=== PATIENT | female | born 1935 | race Caucasian/White ===

== ENCOUNTER 2017-08-11 19:10 | Inpatient (IN) | payer MEDICARE, MEDICAID ==
[2017-08-11] MEDS ORDERED: Pantoprazole 40 MG VIAL ONE (20:06)
[2017-08-11] MEDS ORDERED: Pantoprazole 80 MG, Admixture Fee 1 EACH in Sodium Chloride 0.9% 100 ML IVPB ONE (20:15)
[2017-08-11] MEDS ORDERED: Ondansetron HCl/PF 4 MG/2 ML Vial IVP PRN (20:41)
[2017-08-11] MEDS ORDERED: Acetaminophen 325 MG TAB PO PRN (20:41)
[2017-08-11] MEDS ORDERED: Guaifenesin DM 100-10/5 ML UDCUP PO PRN (20:41)
[2017-08-11] MEDS ORDERED: IDARUCIZUMAB 2.5 GM/50 ML VIAL IV SCH (21:00)
[2017-08-11 21:15] LABS: #Basophils 0.1 thou/uL (0.0-0.2); #Eosinphils 0.1 thou/uL (0.0-0.7); #Lymphocytes 0.9 thou/uL (1.20-3.40); #Monocytes 0.5 thou/uL (0.11-0.59); #Neutrophils 7.2 thou/uL (1.40-6.50); %Basophils 0.8 % (0.0-1.0); %Eosinophils 0.6 % (0.0-10.0); %Lymphocytes 10.5 % (21.0-51.0); %Monocytes 5.9 % (0.0-10.0); %Neutrophils 82.2 % (42.0-75.0); Hemoglobin 6.6 g/dL (12.0-16.0); Mean Corpuscular HGB CONC 31.8 g/dL (32.0-36.0); Mean Corpuscular Hemoglobin 24.4 pg (27.0-31.0); Mean Corpuscular Volume 76.7 fl (81.0-99.0); Mean Platelet Volume 10.7 fL (7.4-10.4); Platelet Count 240 thou/uL (130-400); RBC Distribution Width 22.6 % (11.5-14.5); White Blood Cell (WBC) Count 8.8 thou/uL (4.8-10.8)
--- NOTE | 2017-08-11 22:00 | HP ---
REASON FOR ADMISSION: Severe anemia, GI bleed. HISTORY OF PRESENTING ILLNESS: The patient was sent from [facility] to [facility] for possible workup of stroke as she was not moving her left side. During the workup, the patien t was found to have had hemoglobin of 3.5 g. A stool rectal was done, which showed melena and was po sitive. She was given 2 units of packed cell transfusion and a CT of the brain was done, which showe d possible thalamic lacunar infarct on the right. She has been transferred here for higher level of care. Her current hemoglobin is pending. The patient is lethargic and barely answers 1 or 2 questio ns. Her daughter, Ms. Rosi White is here who is helping me with the history part. The patient is on Pradaxa for chronic atrial fibrillation and follows up with Dr. Anguiano. She has had prior history of heavy bleeding and has had colonoscopy done in last January at [facility]. Dr. Chrissy hays did the colonoscopy and the reason for her GI bleed was due to rectal fissures and hemorrhoids t rose mary. After a washout, she was restarted on Pradaxa. This has been held from yesterday, now for [employer] work on the . She has some right side dental carries/pain. The patient says she has not passe d any bowel movement today. Again, her history is not very accurate at present. The family also men tions that she has not been eating or drinking from Friday as she has been feeling weak from then on. PAST MEDICAL AND SURGICAL HISTORY: History of chronic atrial fibrillation, hypertension, obstructive sleep apnea, history of melanoma, appendectomy, cholecystectomy, bilateral breast implants, history of CHF, COPD, peripheral vascular disease, GERD, and hypothyroidism. CURRENT MEDICATIONS: The patient is on Abilify 5 mg p.o. at bedtime for depression, Norvasc 10 mg p. o. daily, aspirin 81 mg p.o. daily, Cardizem hydrochloride solutions to be applied 1 g 3 times daily p.r.n. for rectal area for hemorrhoids, losartan 100 mg p.o. daily, melatonin 3 mg p.o. at bedtime, m etoprolol 25 mg p.o. daily, MiraLax 17 g daily, thyroid 32.5 mg daily, Pradaxa 150 mg twice daily, Ul tram p.r.n. for pain, Zoloft 150 mg p.o. daily, zolpidem 5 mg p.o. at bedtime. ALLERGIES: CODEINE. PERSONAL HISTORY: Does not abuse alcohol or drugs. No history of smoking. The patient lives at [facility]. FAMILY HISTORY: Significant for heart disease. REVIEW OF SYSTEMS: Cannot be obtained as patient is very lethargic. PHYSICAL EXAMINATION: GENERAL: The patient is an 82-year-old female who is currently very lethargic. VITAL SIGNS: 110/54, pulse 76 per minute, respiratory rate 16 per minute, temperature 97.6 degrees F ahrenheit, saturating 94% on room air. Earlier, her blood pressure was 76/40 at [facility] nd 6:02 p.m. NECK: Supple, no elevated JVD. HEENT: Eyes, there is severe pallor. Extraocular muscles intact. Pupils reacting to light. Oral c avity, mucous membranes are dry. No exudates or congestion. CARDIOVASCULAR SYSTEM: S1, S2 heard. Regular rhythm. RESPIRATORY SYSTEM: Air entry 1+ bilateral. No rales or rhonchi. ABDOMEN: Soft, bowel sounds heard. No tenderness, rigidity or guarding. EXTREMITIES: There is 2+ peripheral edema. Left lower extremity edema is far worse than right. No ulcerations or gangrene. Peripheral pulses are 1+ bilateral. CENTRAL NERVOUS SYSTEM: The patient is severely deconditioned and she has not seen moving her left u pper extremity. She moves her right upper extremity pretty good when compared to all 4. Right lower extremity, she moves better than left. She barely moves with gravity and does not lift her legs or bend her knees. Gait was not tested. PSYCHIATRIC SYSTEM: Cannot be assessed due to patient's extreme lethargy at present. LABORATORY AND X-RAY FINDINGS: White count of 14, H and H 3 and 12, platelet count 320 with 79% neut rophils, MCV is 65. PT/INR 22 and 2.0, PTT 43. Sodium 135, serum bicarbonate is 19, BUN 43, creatin ine 0.6, glucose 118, lactic acid 3.0. Troponin I 0.10, CK-MB 2.0. BNP 650. Albumin is 2.7. CT br ain done shows questionable lacunar infarct in right thalamus, which appears to be age indeterminate. There is diffuse chronic ischemic changes seen. EKG done shows atrial fibrillation at 82 beats per minute. There is nonspecific ST-T wave changes. CLINICAL IMPRESSION AND PLAN: The patient will be admitted to [facility] for severe anemia with gastrointe stinal bleed. The patient is on Pradaxa and this is second episode this year with severe bleeding. Praxbind is available in the pharmacy and will give her 5 mg IV 1 dose. The patient has received 2 u nits of packed cell at [facility] and will be given 2 more units along with 2 units of FFP as well. This is in view of her critical condition with hemoglobin of 3 g and the patient not being a juanita te for surgery or any procedures due to poor physical condition with likely acute infarct with left h emiparesis, which needs further workup when her H and H gets stable. She will be on Protonix drip 8 mg an hour. I have discussed her findings with Dr. Kris Jsoue, who will be consulted for GI. The patient's code status is DNR. I have discussed this with Ms. Rosi White, who is the daughter and pow er of securities attorney for the patient. The number to reach her is [phone]. The patient's overall cond ition is critical. The family clearly is aware of it. We will closely monitor her in [facility].
[2017-08-11 23:02] VITALS: BMI 29.3
[2017-08-12] MEDS: Pantoprazole 80 MG in Sodium Chloride 0.9% 100 ML IVP SCH ×2 (05:50→17:01)
[2017-08-12 06:05] LABS: Hemoglobin 8.6 g/dL (12.0-16.0)
[2017-08-12 06:32] LABS: ALT (SGPT) 18 U/L (8-55); AST (SGOT) 36 U/L (5-34); Albumin 2.8 g/dL (3.4-4.8); Alkaline Phosphatase 104 U/L (40-150); Anion Gap 11 mmol/L (10-20); BUN (Urea Nitrogen) 37 mg/dL (9.8-20.1); Bilirubin, Total 0.5 mg/dL (0.2-1.2); Calc. Creatinine Clearance 70 mL/min (70-130); Calcium 8.2 mg/dL (7.8-10.44); Carbon Dioxide 22 mmol/L (23-31); Chloride 106 mmol/L (98-107); Estimated GFR-MDRD 88; Globulin 2.7 g/dL (2.4-3.5); Glucose 103 mg/dL (83-110); Potassium 3.6 mmol/L (3.5-5.1); Protein, Total 5.5 g/dL (6.0-8.3); Sodium 135 mmol/L (136-145)
[2017-08-12] MEDS ORDERED: FLU VACC TS2017-18 (>65YR) 0.5 ML SYRINGE IM ONE (09:00)
[2017-08-12 09:50] LABS: Hemoglobin 8.9 g/dL (12.0-16.0)
[2017-08-12] MEDS ORDERED: Metoprolol Tartrate 25 MG TAB PO SCH (11:30)
[2017-08-12] MEDS ORDERED: Amlodipine 10 MG TAB PO SCH (11:30)
--- NOTE | 2017-08-12 12:36 | PDOC.PN ---
- Subjective Encounter Start Date: 08/12/17 Encounter Start Time: 11:10 Subjective: awake, no sob -: is wanting to eat - Objective Resuscitation Status: Resuscitation Status DNR:Do Not Resuscitate MAR Reviewed: Yes Vital Signs & Weight: Vital Signs (12 hours) Temp Pulse Pulse Resp BP Pulse Ox 08/12/17 08:00 98.0 F 82 17 94 L 08/12/17 07:00 97.8 F 08/12/17 04:53 97.6 F 80 20 96/50 L 98 08/12/17 04:00 98 F 08/12/17 02:27 97.5 F L 76 20 156/75 H 94 L 08/12/17 02:15 97.6 F 75 18 123/65 97 08/12/17 02:00 97.5 F L 08/12/17 01:57 97.6 F 75 18 130/69 Weight Weight 150 lb 2.157 oz Most Recent Monitor Data Heart Rate from ECG 86 NIBP 149/107 NIBP BP-Mean 142 Respiration from ECG 18 SpO2 95 I&O: 08/11/17 08/12/17 08/13/17 06:59 06:59 06:59 Intake Total 1669 Output Total 2 1 Balance 1667 -1 Result Diagrams: 08/12/17 09:27 08/12/17 05:45 Phys Exam - Physical Examination HEENT: PERRLA, moist MMs Neck: no JVD, supple Respiratory: no wheezing, no rales Cardiovascular: RRR, no significant murmur Gastrointestinal: soft, non-tender, positive bowel sounds Musculoskeletal: pulses present, edema present Neurological: non-focal, moves all 4 limbs Dx/Plan (1) Acute blood loss anemia Code(s): D62 - ACUTE POSTHEMORRHAGIC ANEMIA Status: Acute (2) GI bleed Code(s): K92.2 - GASTROINTESTINAL HEMORRHAGE, UNSPECIFIED Status: Acute Qualifiers: GI bleed type/associated pathology: unspecified gastrointestinal hemorrhage type Qualified Code(s): K92.2 - Gastrointestinal hemorrhage, unspecified (3) Severe muscle deconditioning Code(s): R29.898 - OTH SYMPTOMS AND SIGNS INVOLVING THE MUSCULOSKELETAL SYSTEM Status: Chronic (4) Afib Code(s): I48.91 - UNSPECIFIED ATRIAL FIBRILLATION Status: Chronic Qualifiers: Atrial fibrillation type: chronic Qualified Code(s): I48.2 - Chronic atrial fibrillation (5) Dementia Code(s): F03.90 - UNSPECIFIED DEMENTIA WITHOUT BEHAVIORAL DISTURBANCE Status: Chronic Qualifiers: Dementia type: unspecified type - Plan Hb around 8g and stable -: received praxbind, 2 u prbc and ffp yesterday -: will check inr in am -: is moving her left UE well this am -: d/w daughter at bedside, tx to med floor * . Review of Systems - Medications/Allergies Allergies/Adverse Reactions: Allergies Allergy/AdvReac Type Severity Reaction Status Date / Time codeine Allergy Unverified 08/11/17 20:06 Medications: Current Medications Acetaminophen (Tylenol) 650 mg PO Q4H PRN PRN Reason: Headache/Fever or Pain Amlodipine Besylate (Norvasc) 10 mg PO DAILY [facility] Aripiprazole (Abilify) 5 mg PO HS [facility] Guaifenesin/Dextromethorphan (Robitussin Dm) 15 ml PO Q4H PRN PRN Reason: Cough Pantoprazole Sodium 80 mg/ (Sodium Chloride) 100 mls @ 10 mls/hr IVP INF [facility] Last Admin: 08/12/17 05:50 Dose: 100 mls Metoprolol Tartrate (Lopressor) 25 mg PO BID [facility] Ondansetron HCl (Zofran) 4 mg IVP Q6H PRN PRN Reason: Nausea/Vomiting Sertraline HCl (Zoloft) 100 mg PO BID [facility] Sodium Chloride (Flush - Normal Saline) 10 ml IVF PRN PRN PRN Reason: Saline Flush
[2017-08-12] MEDS ORDERED: GoLYTELY 4,000 ml Bottle PO SCH (15:15)
[2017-08-12 16:30] LABS: INR-International Normal Ratio 1.2; PTT 24.1 SEC (22.9-36.1); Prothrombin Time 15.3 SEC (12.0-14.7)
--- NOTE | 2017-08-12 19:45 | CON ---
DATE OF CONSULTATION: 08/12/2017 REASON FOR CONSULTATION: GI bleed. CONSULTING PHYSICIAN: Dr. Allie Castro. HISTORY OF PRESENT ILLNESS: The patient is an 82-year-old female with a history of atrial fibrillati on on Pradaxa, MICHELLE, melanoma, CHF, COPD, peripheral vascular disease, and GERD, presenting with compl aints of GI bleeding. She is currently a resident of [facility] when she was noted that she was not moving her left side as effectively as previous with concern for a cerebrovascular accident. She was subsequently transferred to [facility] for further evaluation. Upon entr y into the facility with routine labs, she was noted to have a hemoglobin of 3.5 with a stool, rectal exam showing melena. She was subsequently given 2 units of PRBCs with a CT head done not showing an y hemorrhagic involvement. Currently, she is confused and unable to contribute a significant amount of information to further history with family unavailable for interview as well. The remainder of he r information was obtained through chart review. Apparently the patient had had a prior episode of G I bleeding in 01/2017 where she was evaluated by a GI physician at [facility] with colono scopy. During the colonoscopy, the GI bleed was relegated to rectal fissures and hemorrhoids. She w as restarted on Pradaxa shortly after the procedures and had not had any further episodes of GI bleed ing until now. PAST MEDICAL HISTORY: Chronic atrial fibrillation on anticoagulation, hypertension, obstructive slee p apnea, melanoma, CHF, COPD, peripheral vascular disease, GERD, and hypothyroidism. PAST SURGICAL HISTORY: Appendectomy, cholecystectomy, bilateral breast implants. SOCIAL HISTORY: Denies any tobacco, alcohol or illicit drug use. ALLERGIES: CODEINE. FAMILY HISTORY: No stated history of GI malignancy in the chart. REVIEW OF SYSTEMS: A 12-category review of systems could not be obtained from the patient due to inc reased confusion and lethargy on the part of the patient. PHYSICAL EXAMINATION: VITAL SIGNS: Heart rate 86, blood pressure 149/107, temperature 98 degrees, respiratory rate 18, sat ting 95% on room air. GENERAL: The patient is in no acute distress, alert and oriented x1. Mild confusion concerning her current situation. HEENT: Pupils are equal and round, reactive to light. Extraocular movements are intact. NECK: Supple. No JVD noted. CARDIOVASCULAR: Irregularly irregular heart rate with no discernible murmurs or gallops. A high pit ched systolic murmur was heard at the left upper sternal border. RESPIRATORY: Clear to auscultation bilaterally with no discernible wheezes or rales. ABDOMEN: Normoactive bowel sounds, soft, nontender, nondistended. EXTREMITIES: No cyanosis, clubbing or edema. LABORATORY STUDIES: CBC with a white blood cell count of 8.8, hemoglobin 8.6, hematocrit 26.3, plate lets 240. Chemistry with a sodium of 135, potassium 3.6, chloride 106, carbon dioxide 22, BUN 37, cr eatinine 0.64, glucose 103, AST 36, ALT 18, alkaline phosphatase 104, total bilirubin 0.5, MCV 76, RD W 22.6. IMAGING STUDIES: No current GI imaging studies are available for review. ASSESSMENT AND PLAN: The patient is an 82-year-old female with a history of atrial fibrillation on c hronic anticoagulation, obstructive sleep apnea, melanoma, congestive heart failure, chronic obstruct samuel pulmonary disease, peripheral vascular disease, and gastroesophageal reflux disease, presenting w ith complaints of GI bleeding. GI bleeding: The patient presenting with a questionable duration of darker colored stools along with a significantly decreased H&H as noted on routine labs upon admission. She has responded well to ap proximately 4 units of PRBCs with H&H currently stable at this time; however, rectal exam while in th e ED and was noted to have melenic type stools. Nursing evaluation while the patient has been in the ICU, has noted maroon type stools concerning for either an upper or lower gastrointestinal bleed. G iven the elevated BUN to creatinine ratio, an upper gastrointestinal bleed cannot be ruled out at thi s time, so therefore endoscopic evaluation of both the upper and lower GI tracts is indicated. RECOMMENDATIONS: 1. Continue to trend H&H and transfuse as necessary to maintain an H&H of 7/. 2. We would continue PPI drip until after endoscopic procedures. 3. We will proceed with both EGD and colonoscopy on 08/13/2017. Please make the patient n.p.o. at m idnight with colonoscopy prep 2 liters tonight and 2 liters in the morning of the procedure. 4. If patient cannot tolerate oral intake of the colonoscopy prep, we would consider NG tube placeme nt and administration via that route.
[2017-08-12] MEDS: Aripiprazole 10 MG TAB PO SCH (21:12)
[2017-08-12] MEDS: Metoprolol Tartrate 25 MG TAB PO SCH (21:13)
--- NOTE | 2017-08-12 21:42 | CON ---
HISTORY OF PRESENT ILLNESS: History is obtained from the patient, from the medical records that are available on the computer from reviewing patient's care with the nurse. Apparently, Ms. Alanis is a halfway resident. Apparently, she became hemiplegic prior to admission and was transferred from her care environment to the emergency room in [place]. She was found to have hemoglobin of 3.5 grams. She was transfused and transferred to [facility]. Apparently, she was lethargic when she arrived, but she is awake and considerably per my discussion w ith the nursing staff and after interviewing her. She does not recall coming to the hospital. PAST MEDICAL AND SURGICAL HISTORY: Remarkable for; 1. Chronic anticoagulation for atrial fibrillation. 2. History of GI bleeding in the past worked up at [facility]. 3. History of poor p.o. intake prior to admission. 4. History of sleep apnea. 5. History of melanoma in the past. 6. History of an appendectomy. 7. History of hypertension. 8. History of cholecystectomy. 9. History of breast implants surgery bilaterally. 10. History of cardiomyopathy. 11. Reported history of obstructive lung disease. 12. History of reflux disease. 13. Peripheral vascular disease. 14. History of hypothyroidism. 15. History of depression. MEDICATIONS: Prior to admission were aspirin, Norvasc, Abilify, Cardizem, losartan, melatonin, metop rolol, MiraLax, Synthroid, Pradaxa, Ultram, Zoloft, and Ambien. SOCIAL HISTORY: She is non-smoker, nondrinker. She is a halfway resident. She carries a diagn osis of COPD, but has no history of smoking, reportedly. ALLERGY: Listed is being CODEINE. FAMILY HISTORY: Positive for heart disease. No history of lung disease at an early age. REVIEW OF SYSTEMS: Still not accurately obtainable, although she does answer questions in yes/no fas hion fairly promptly. PHYSICAL EXAMINATION: VITAL SIGNS: She is afebrile, heart rates 84, blood pressure 113/62, respiratory rate 20. Oximetry is 92%. HEENT: Pupils react. Sclerae are anicteric. NECK: Supple. LUNGS: Clear. HEART: Regular rhythm. ABDOMEN: Soft and nontender. EXTREMITIES: Without asymmetry. LABORATORY AND X-RAY FINDINGS: Hemoglobin is 8.9 this morning, 8.6 four hours earlier and 6.6 last n ight at 8:47. Sodium 135, potassium 3.6, chloride 106, bicarbonate 22, BUN 37, creatinine 0.6, album in is 2.8. Head CT was reviewed done over in [place]. She has chronic ischemic changes. There is no hemorrhage, no clear cut cerebrovascular thrombotic event was seen. IMPRESSION: Gastrointestinal blood loss, severe anemia. Her neurological symptoms were most likely related to he r vital signs and her anemia. These apparently have improved. She does not appear to be actively bleeding. Gastroenterology has been consulted. She is stable to move out of the Critical Care Unit in my opinion. Apparently, the family has relayed that she is a d o not resuscitate patient, but we will continue with aggressive care short of mechanical ventilation. She probably needs to be off anticoagulants for the rest of her life. Consult time is 50 minutes which 50% of this was spent reviewing the records, consulting with the [facility], the patient's bedside, reviewing radiographs and lab work.
[2017-08-13 05:22] LABS: Anion Gap 15 mmol/L (10-20); BUN (Urea Nitrogen) 25 mg/dL (9.8-20.1); Calc. Creatinine Clearance 78 mL/min (70-130); Calcium 8.4 mg/dL (7.8-10.44); Carbon Dioxide 21 mmol/L (23-31); Chloride 108 mmol/L (98-107); Estimated GFR-MDRD Greater than 90; Glucose 79 mg/dL (83-110); Potassium 3.7 mmol/L (3.5-5.1); Sodium 140 mmol/L (136-145)
[2017-08-13] MEDS: Metoprolol Tartrate 25 MG TAB PO SCH ×2 (06:19→20:54)
[2017-08-13] MEDS: Pantoprazole 80 MG in Sodium Chloride 0.9% 100 ML IVP SCH (06:40)
[2017-08-13] MEDS ORDERED: GoLYTELY 4,000 ml Bottle PO SCH ×2 (07:00→19:45)
[2017-08-13] MEDS: Amlodipine 10 MG TAB PO SCH (07:35)
--- NOTE | 2017-08-13 08:33 | PRG ---
DATE OF SERVICE: 08/13/2017 Ms. Alanis now has an NG tube, it is not connected to suction. PHYSICAL EXAMINATION: VITAL SIGNS: She is afebrile, heart rate 80, respiratory rate 18, blood pressure 147/93. LUNGS: Lungs are clear. HEART: Regular rhythm. She is tentatively scheduled for endoscopy today. She is receiving GoLYTELY through her NG tube. She is much more alert today than she was yesterday. For some reason a hemoglobin was not done this morning, so I will order this. IMPRESSION AND PLAN: Gastrointestinal blood loss with severe anemia and altered mental status second christal to severe anemia. She will have endoscopy today. We will check a stat hemoglobin.
[2017-08-13 09:46] LABS: INR-International Normal Ratio 1.2; Prothrombin Time 15.8 SEC (12.0-14.7)
[2017-08-13 09:51] LABS: PTT 32.3 SEC (22.9-36.1)
[2017-08-13 11:27] LABS: Hemoglobin 11.4 g/dL (12.0-16.0)
[2017-08-13] MEDS: Dextrose 5 % And 0.9 % NaCl 1,000 ML IV SCH (11:46)
--- NOTE | 2017-08-13 12:47 | PDOC.PN ---
- Subjective Encounter Start Date: 08/13/17 Encounter Start Time: 11:45 Subjective: awake, is hungry -: no bleeding -: not fully oriented - Objective Resuscitation Status: Resuscitation Status DNR:Do Not Resuscitate MAR Reviewed: Yes Vital Signs & Weight: Vital Signs (12 hours) Temp Pulse Resp BP Pulse Ox 08/13/17 12:00 97.7 F 75 16 146/85 H 94 L 08/13/17 07:35 80 08/13/17 07:26 97.5 F L 80 18 147/93 H 95 Weight Admit Weight 150 lb Weight 150 lb 2.157 oz Most Recent Monitor Data Heart Rate from ECG 94 NIBP 136/79 NIBP BP-Mean 102 Respiration from ECG 23 SpO2 99 I&O: 08/12/17 08/13/17 08/14/17 06:59 06:59 06:59 Intake Total 1669 4000 Output Total 2 4 Balance 1667 3996 Result Diagrams: 08/13/17 03:58 08/13/17 04:16 Phys Exam - Physical Examination HEENT: PERRLA, sclera anicteric Neck: no JVD, supple Respiratory: no wheezing, no rales Cardiovascular: RRR, no significant murmur Gastrointestinal: soft, non-tender, positive bowel sounds Musculoskeletal: no edema, pulses present Neurological: non-focal, moves all 4 limbs Dx/Plan (1) Acute blood loss anemia Code(s): D62 - ACUTE POSTHEMORRHAGIC ANEMIA Status: Acute (2) GI bleed Code(s): K92.2 - GASTROINTESTINAL HEMORRHAGE, UNSPECIFIED Status: Acute Qualifiers: GI bleed type/associated pathology: unspecified gastrointestinal hemorrhage type Qualified Code(s): K92.2 - Gastrointestinal hemorrhage, unspecified (3) Severe muscle deconditioning Code(s): R29.898 - OTH SYMPTOMS AND SIGNS INVOLVING THE MUSCULOSKELETAL SYSTEM Status: Chronic (4) Afib Code(s): I48.91 - UNSPECIFIED ATRIAL FIBRILLATION Status: Chronic Qualifiers: Atrial fibrillation type: chronic Qualified Code(s): I48.2 - Chronic atrial fibrillation (5) Dementia Code(s): F03.90 - UNSPECIFIED DEMENTIA WITHOUT BEHAVIORAL DISTURBANCE Status: Chronic Qualifiers: Dementia type: unspecified type - Plan H/H and inr is stable -: for endoscopies today both egd and colonoscopy -: dc plan in am to snf if stable -: is moving all extremities, upper better than lower, no clinical evidence fo -: -r cva. No further anticoagulation for life * . Review of Systems - Medications/Allergies Allergies/Adverse Reactions: Allergies Allergy/AdvReac Type Severity Reaction Status Date / Time codeine Allergy Unverified 08/11/17 20:06 Medications: Current Medications Acetaminophen (Tylenol) 650 mg PO Q4H PRN PRN Reason: Headache/Fever or Pain Amlodipine Besylate (Norvasc) 10 mg PO DAILY [facility] Last Admin: 08/13/17 07:35 Dose: Not Given Aripiprazole (Abilify) 5 mg PO HS [facility] Last Admin: 08/12/17 21:12 Dose: 5 mg Guaifenesin/Dextromethorphan (Robitussin Dm) 15 ml PO Q4H PRN PRN Reason: Cough Pantoprazole Sodium 80 mg/ (Sodium Chloride) 100 mls @ 10 mls/hr IVP INF [facility] Last Admin: 08/13/17 06:40 Dose: 100 mls Dextrose/Sodium Chloride (D5 0.9% Ns) 1,000 mls @ 60 mls/hr IV .[id number] [facility] Last Admin: 08/13/17 11:46 Dose: 1,000 mls Metoprolol Tartrate (Lopressor) 25 mg PO BID [facility] Last Admin: 08/13/17 06:19 Dose: 25 mg Ondansetron HCl (Zofran) 4 mg IVP Q6H PRN PRN Reason: Nausea/Vomiting Polyethylene Glycol/Electrolytes (Golytely) 4,000 ml PO NOW [facility] Stop: 08/13/17 14:00 Last Admin: 08/13/17 06:48 Dose: 4,000 ml Sertraline HCl (Zoloft) 100 mg PO BID [facility] Last Admin: 08/13/17 07:35 Dose: Not Given Sodium Chloride (Flush - Normal Saline) 10 ml IVF PRN PRN PRN Reason: Saline Flush
--- NOTE | 2017-08-13 19:08 | PRG ---
DATE OF SERVICE: 08/13/2017 SUBJECTIVE: The patient is doing well overnight with no further episodes of GI bleeding. She did zuniga ve an NG tube placed for the purpose of facilitating ingestion of GoLYTELY in anticipation for the co lonoscopy that was scheduled for this morning; however, this morning, she was still noted to have sig nificant amounts of both solid and liquid stool that would thereby prevent visualization of the colon ic mucosa. She was given an additional 4 liters of bowel prep with continued unclear stools. Later in the day, she inadvertently pulled out the NG tube, but has been evaluated by speech pathology and noted to have a functioning swallow that is amenable towards mechanical soft diet. Currently, denies any nausea, vomiting, fevers, chills or abdominal pain. OBJECTIVE: VITAL SIGNS: Temperature 97.7, pulse 75, blood pressure 138/87, respiratory rate 16 and satting 94% on room air. GENERAL: Patient is in no acute distress, alert and oriented x3, mild confusion, concerning her curr ent situation. CARDIOVASCULAR: Irregularly irregular heart rate with no discernible murmurs, gallops or rubs. A hi gh pitch systolic murmur is heard in the left upper sternal border. RESPIRATORY: Clear to auscultation bilaterally with no discernible wheezes or rales. ABDOMEN: Normoactive bowel sounds, soft, nontender and nondistended. EXTREMITIES: No cyanosis, clubbing or edema. LABORATORY DATA: Hemoglobin 11.4, hematocrit 37.2. Chemistry with a sodium of 140, potassium 3.7, c hloride 108, carbon dioxide 21, BUN 25, creatinine 0.58 and glucose 79. IMAGING STUDIES: No current GI imaging studies are available for review. ASSESSMENT AND PLAN: The patient is an 82-year-old female with a history of atrial fibrillation on c hronic anticoagulation, obstructive sleep apnea, melanoma, congestive heart failure, chronic obstruct samuel pulmonary disease, peripheral vascular disease, and gastroesophageal reflux disease presenting wi th gastrointestinal bleeding. Gastrointestinal bleeding: Patient presenting with questionable duration of darker colored stools al ruddy with significantly decreased hemoglobin and hematocrit as noted on labs on admission. She has re sponded well to infusion of 4 units of PRBCs with current hemoglobin and hematocrit at 11 and 37, not ing an inappropriate or elevated response to blood given. Given the history of both bright red blood per rectum and melenic type stools, it is unclear if this is due to either an upper or lower GI blee d at this time. However, with the significant stool flushed via colonoscopy prep, it is most likely related more to lower GI bleeding as opposed to upper (melena is an excellent cathartic). At this ti me, she was unable to adequately drink the prep to achieve clear stools this morning that is needed f or adequate visualization of the colonic mucosa, so the procedure was postponed until tomorrow. RECOMMENDATIONS: Continue to trend hemoglobin and hematocrit and transfuse as necessary to maintain an hemoglobin and hematocrit of 7 and 21. Would continue PPI drip until after endoscopic procedures . We will proceed with both EGD and colonoscopy on 08/14/2017. Patient can be on a clear liquid t today and tonight with additional 2 liters of GoLYTELY prep in anticipation of the procedures in e morning. NG tube is not needed at this time for the additional prep.
[2017-08-13] MEDS: Aripiprazole 10 MG TAB PO SCH (20:53)
[2017-08-14] MEDS: Pantoprazole 80 MG in Sodium Chloride 0.9% 100 ML IVP SCH (01:15)
[2017-08-14] MEDS: Dextrose 5 % And 0.9 % NaCl 1,000 ML IV SCH (01:46)
[2017-08-14] MEDS: Metoprolol Tartrate 25 MG TAB PO SCH ×2 (05:39→21:09)
--- NOTE | 2017-08-14 08:22 | RAD ---
ABDOMEN ONE VIEW: History: NG tube placement. Comparison: None. FINDINGS: Enteric tube is coiled in the esophagus with tip not seen. IMPRESSION: Coiled enteric tube. Recommend retraction and readvancement. POS: [facility]
--- NOTE | 2017-08-14 08:24 | RAD ---
ABDOMEN ONE VIEW: History: Verification of NG tube placement. Comparison: Earlier same date. FINDINGS: Enteric tube is in place with the tip in the GE junction. There are mildly distended loops of gas brigida led bowel throughout the abdomen. Elevation of the left hemidiaphragm. Dense calcifications of the aortoiliac system. IMPRESSION: Enteric tube tip near the GE junction. Recommend advancing. POS: [facility]
[2017-08-14] MEDS: Amlodipine 10 MG TAB PO SCH (09:00)
[2017-08-14] MEDS ORDERED: Ondansetron HCl/PF 4 MG/2 ML Vial IVP PRN (09:04)
[2017-08-14] MEDS ORDERED: Promethazine HCl 25 MG/ML VIAL SLOW IVP PRN (09:04)
[2017-08-14] MEDS ORDERED: Promethazine HCl 25 MG/ML VIAL IM PRN (09:04)
--- NOTE | 2017-08-14 09:43 | OP ---
DATE OF PROCEDURE: 08/14/2017 PROCEDURE: Esophagogastroduodenoscopy and colonoscopy, both diagnostic. INDICATION FOR PROCEDURE: Hematochezia and melena. PROCEDURE: EGD. DESCRIPTION OF PROCEDURE: After risks and benefits were discussed with the patient and her surrogate (medical power of paper production engineer) with risks including bleeding, infection, perforation, reactions to anesthesia and/or pain, informed consent was obtained. The patient was then taken to the endoscopy suite where deep sedation was administered via propofol and anesthesia support. The standard gastroscope was then advanced through the mouth with intubation of the esophagus, stomach and first and second portion of the intestines with the findings listed below. FINDINGS: DUODENUM: Normal appearing mucosa was seen in both the duodenal bulb and second portion of the duodenum. There was no evidence of ulcerations, erosions , active/recent bleeding, or mass lesions. STOMACH: Normal appearing mucosa was seen in the gastric cardia, fundus, body, antrum and incisura. There was no evidence of erosions, ulcerations, active/ recent bleeding or mass lesions. No hiatal hernia was seen on retroflexion. ESOPHAGUS: Normal appearing mucosa was seen in the proximal, mid and distal esophagus with no evidence of esophagitis, ulcerations, active/recent bleeding or mass lesions. POSTOPERATIVE DIAGNOSES: 1. Normal upper endoscopy. 2. No etiology for recent gastrointestinal bleeding seen on this exam. RECOMMENDATIONS: 1. Proceed to colonoscopy. PROCEDURE: Colonoscopy. INDICATION: Hematochezia, melena. DESCRIPTION OF PROCEDURE: After discussing the risks and benefits with the patient and her surrogate (medical power of paper production engineer) including risks of bleeding, infection, perforation, reaction to anesthesia and/or pain, informed consent was obtained, the patient was taken to the endoscopy suite where deep sedation was administered via propofol and anesthesia support. The standard gastroscope was then advanced into the rectum with intubation all the way to the cecum. The quality of the prep was fair with a significant amount of solid stool seen in the rectal vault, but the remainder of the colon was adequately visualized. The patient's colon exhibited a tortuous anatomy that required the use of counterpressure to facilitate the passage of the colonoscope. The patient tolerated the procedure well with no madelaine-procedural complications with findings listed below. RECTAL EXAM: Small external hemorrhoids were noted, normal sphincter tone. FINDINGS: Normal appearing mucosa was seen at the ileocecal valve and the appendiceal orifice. Normal appearing mucosa was seen in the cecum. A 2mm polyp was seen in the distal ascending colon near the hepatic flexure, but not intervened upon due to recent bleeding. Normal appearing mucosa was seen in the transverse colon and descending colon. Scattered medium sized diverticula were seen in the sigmoid colon and descending colon without any evidence of active/recent bleeding. They were very few in number. A 2 cm, very shallow, clean based, cratered ulceration was seen at 15 cm past the anal verge without evidence of active/recent bleeding. It appeared to be in a state of healing with no high risk stigmata associated with this ulceration. Further evaluation of the rectum, rectal vault was unable to be achieved due to the remainder of the large amount of solid stool. Retroflexion was performed, but adequate visualization could not be achieved due to the residual solid stool. IMPRESSION: 1. A 2 mm sessile polyp in the distal ascending colon, not intervened upon. 2. Scattered medium sized diverticula in the left colon (mild diverticulosis). 3. A 2 cm shallow, cratered, clean based ulceration seen at 15 cm past the anal verge without evidence of active/recent bleeding (most likely source of recent hematochezia) for a large amount of solid stool in the rectum preventing adequate visualization of the rectum including retroflexion. RECOMMENDATIONS: 1. Follow up with primary inpatient team. 2. We would continue to trend hemoglobin and hematocrit and transfuse as necessary and maintain an hemoglobin and hematocrit of 7/21. 3. Would place patient on a bowel regimen consisting of MiraLax nightly to facilitate softening of her stools and prevention of further stercoral ulcerations in the future. 4. Per primary team discussion about anticoagulation related to cardiac conditions would need to be handled with the patient given this is her second bleeding episode while on Pradaxa. We will sign off at this point. Please reconsult with any questions. GOVIND
--- NOTE | 2017-08-14 12:57 | PDOC.PN ---
- Subjective Encounter Start Date: 08/14/17 Encounter Start Time: 11:40 Subjective: is awake and conversing well - Objective Resuscitation Status: Resuscitation Status DNR:Do Not Resuscitate MAR Reviewed: Yes Vital Signs & Weight: Vital Signs (12 hours) Temp Pulse Resp BP Pulse Ox 08/14/17 11:30 97.6 F 76 16 102/69 92 L 08/14/17 05:45 98.8 F 82 18 127/76 97 Weight Admit Weight 150 lb Weight 150 lb 2.157 oz Most Recent Monitor Data Heart Rate from ECG 94 NIBP 136/79 NIBP BP-Mean 102 Respiration from ECG 23 SpO2 99 I&O: 08/13/17 08/14/17 08/15/17 06:59 06:59 06:59 Intake Total 4000 Output Total 4 Balance 3996 Result Diagrams: 08/13/17 03:58 08/13/17 04:16 Phys Exam - Physical Examination HEENT: PERRLA, moist MMs Neck: no JVD, supple Respiratory: no wheezing, no rales Cardiovascular: RRR, no significant murmur Gastrointestinal: soft, non-tender, positive bowel sounds Musculoskeletal: pulses present, edema present Neurological: non-focal, moves all 4 limbs Dx/Plan (1) Acute blood loss anemia Code(s): D62 - ACUTE POSTHEMORRHAGIC ANEMIA Status: Acute (2) GI bleed Code(s): K92.2 - GASTROINTESTINAL HEMORRHAGE, UNSPECIFIED Status: Resolved Qualifiers: GI bleed type/associated pathology: unspecified gastrointestinal hemorrhage type Qualified Code(s): K92.2 - Gastrointestinal hemorrhage, unspecified (3) Severe muscle deconditioning Code(s): R29.898 - OTH SYMPTOMS AND SIGNS INVOLVING THE MUSCULOSKELETAL SYSTEM Status: Chronic (4) Afib Code(s): I48.91 - UNSPECIFIED ATRIAL FIBRILLATION Status: Chronic Qualifiers: Atrial fibrillation type: chronic Qualified Code(s): I48.2 - Chronic atrial fibrillation (5) Dementia Code(s): F03.90 - UNSPECIFIED DEMENTIA WITHOUT BEHAVIORAL DISTURBANCE Status: Chronic Qualifiers: Dementia type: unspecified type - Plan h/h and hemostable -: egd and colonoscopy results noted -: d/w dauhgter at bedside -: no anticoag for life -: dc plan to snf in am with hospice, oral solid diet today * . Review of Systems - Medications/Allergies Allergies/Adverse Reactions: Allergies Allergy/AdvReac Type Severity Reaction Status Date / Time codeine Allergy Unverified 08/11/17 20:06 Medications: Current Medications Acetaminophen (Tylenol) 650 mg PO Q4H PRN PRN Reason: Headache/Fever or Pain Amlodipine Besylate (Norvasc) 10 mg PO DAILY [facility] Last Admin: 08/13/17 07:35 Dose: Not Given Aripiprazole (Abilify) 5 mg PO [facility] Last Admin: 08/13/17 20:53 Dose: 5 mg Docusate Sodium (Colace) 100 mg PO DAILY [facility] Ferrous Sulfate (Feosol) 325 mg PO BID-[facility] Guaifenesin/Dextromethorphan (Robitussin Dm) 15 ml PO Q4H PRN PRN Reason: Cough Metoprolol Tartrate (Lopressor) 25 mg PO BID [facility] Last Admin: 08/14/17 05:39 Dose: 25 mg Ondansetron HCl (Zofran) 4 mg IVP Q6H PRN PRN Reason: Nausea/Vomiting Polyethylene Glycol (Miralax) 17 gm PO DAILY [facility] Sertraline HCl (Zoloft) 100 mg PO BID [facility] Last Admin: 08/13/17 20:54 Dose: 100 mg Sodium Chloride (Flush - Normal Saline) 10 ml IVF PRN PRN PRN Reason: Saline Flush
[2017-08-14] MEDS ORDERED: PROPOFOL 200 MG/20 ML VIAL ONE (13:25)
--- NOTE | 2017-08-14 14:48 | PQF ---
CLINICAL DOCUMENTATION IMPROVEMENT CLARIFICATION FORM: ICD-10 Updated PLEASE DO AN ADDENDUM TO THE PROGRESS NOTE WITH ANY DOCUMENTATION UPDATES OR ADDITIONS AND CARRY THROUGH TO DC SUMMARY. THANK YOU. Date: 08/14/17 ATTN: Dr. Castro Please exercise your independent, professional judgment in responding to the clarification form. Clinical indicators are provided on the bottom of this form for your review Please check appropriate box(s): [ x ] Protein Calorie Malnutrition: [ ] Mild [ x] Moderate [ ] Severe [ ] Other Malnutrition (please specify) __ [ ] Cachexia [ ] Other diagnosis [ ] Unable to determine In addition, please specify: Present on Admission (POA): [ ] Yes [ ] No [ ] Unable to determine CLINICAL INDICATORS - SIGNS / SYMPTOMS / LABS SUPERVISOR SHEET MANUFACTURING ASSESSMENT 2: TRIGGERED FOR WEIGHT LOSS & DECREASED PO INTAKE ATHLETIC FIELD CUSTODIAN. SEVERE TEMPORAL WASTING OBSERVED AND EDEMA PRESENT PN 1/2-08/14: SEVERE MUSCLE DECONDITIONING RISKS: H&P: AGE 82. SENT FROM [facility]. FAMILY MENTIONS NOT EATING OR DRINKING FROM FRIDAY. VERY LETHARGIC. SEVERELY DECONDITIONED. SEVERE ANEMIA W/ GI BLEED. TREATMENT: SUPERVISOR SHEET MANUFACTURING CONSULT: TRIGGERED FOR WT LOSS & DECREASED PO INTAKE ATHLETIC FIELD CUSTODIAN. Thank you, Jenn (This form is maintained as a part of the permanent medical record) 2015 [employer] All Rights Reserved Jenn Callejas RN, BSN [email or web address] Office: [phone] [facility]ITAL[facility]ake
[2017-08-14] MEDS: Ferrous Sulfate 325 MG TAB PO SCH (17:40)
[2017-08-14] MEDS: Aripiprazole 10 MG TAB PO SCH (21:09)
--- NOTE | 2017-08-14 21:10 | PRG ---
DATE OF SERVICE: 08/14/2017 SUBJECTIVE: She has no complaints. She is actually not oriented, but she is comfortable. She is af ebrile, heart rate 79, respiratory rate is 18, oximetry 93, blood pressure 142/80. She is trying to get out of bed. When I walked into room, she said she was supposed to be going for a walk. OBJECTIVE: LUNGS: Clear. HEART: Regular rhythm. ABDOMEN: Nontender. I reviewed her operative note from her endoscopy. She had nothing in her duodenum, nothing in her st omach, nothing in her esophagus. She had hemorrhoids, diverticulosis, and polyp. She had an ulcer in her distal colon. Her hemoglobin was stable, yesterday 11.4, there is no hemoglobin today. In my opinion, she is stable for discharge. We will sign off.
[2017-08-15] MEDS: Docusate 100 MG CAP PO SCH (08:40)
[2017-08-15] MEDS: Ferrous Sulfate 325 MG TAB PO SCH ×2 (08:40→18:26)
[2017-08-15] MEDS: Amlodipine 10 MG TAB PO SCH (08:40)
[2017-08-15] MEDS: Metoprolol Tartrate 25 MG TAB PO SCH ×2 (08:40→22:03)
[2017-08-15] MEDS: Polyethylene Glycol 3350 17 GM Packet PO SCH (08:41)
[2017-08-15 09:06] LABS: Anion Gap 10 mmol/L (10-20); BUN (Urea Nitrogen) 12 mg/dL (9.8-20.1); Calc. Creatinine Clearance 94 mL/min (70-130); Calcium 7.5 mg/dL (7.8-10.44); Carbon Dioxide 25 mmol/L (23-31); Chloride 108 mmol/L (98-107); Estimated GFR-MDRD Greater than 90; Glucose 93 mg/dL (83-110); Sodium 141 mmol/L (136-145)
[2017-08-15 09:10] LABS: Potassium 2.1 mmol/L (3.5-5.1)
[2017-08-15 09:38] LABS: Anisocytosis SLIGHT = 6-15 cells (100X) (0-5/hpf); Band 1 % (5-11); Hemoglobin 9.5 g/dL (12.0-16.0); Lymphocytes 8 % (21-51); MDiff Complete? YES; Mean Corpuscular HGB CONC 31.2 g/dL (32.0-36.0); Mean Corpuscular Hemoglobin 24.4 pg (27.0-31.0); Mean Corpuscular Volume 78.2 fl (81.0-99.0); Mean Platelet Volume 6.6 fL (7.4-10.4); Monocytes 1 % (0-10); Neutrophil 90 % (42-75); Platelet Count 141 thou/uL (130-400); Red Blood Cell (RBC) Count 3.91 mill/uL (4.20-5.40); White Blood Cell (WBC) Count 8.6 thou/uL (4.8-10.8)
[2017-08-15] MEDS ORDERED: Potassium Chloride 20 MEQ/100 ML PREMIX BAG IVPB STA (10:31)
[2017-08-15] MEDS ORDERED: Furosemide 20 MG/2 ML VIAL SLOW IVP SCH (10:45)
[2017-08-15] MEDS ORDERED: Potassium Chloride 20 MEQ in Sodium Chloride 0.9% 250 ML 250 ML IVPB SCH (11:15)
[2017-08-15] MEDS: Potassium Chloride 20 MEQ TAB PO SCH ×2 (11:32→18:26)
--- NOTE | 2017-08-15 12:49 | PDOC.PN ---
- Subjective Encounter Start Date: 08/15/17 Encounter Start Time: 11:25 Subjective: awake, no palp or chest pain -: a bit lethargic this am -: difficulty breathing a bit - Objective Resuscitation Status: Resuscitation Status DNR:Do Not Resuscitate MAR Reviewed: Yes Vital Signs & Weight: Vital Signs (12 hours) Temp Pulse Resp BP Pulse Ox 08/15/17 08:40 85 08/15/17 08:00 97.6 F 85 20 140/82 94 L 08/15/17 04:00 97.6 F 81 16 134/81 92 L Weight Admit Weight 150 lb Weight 150 lb 2.157 oz Most Recent Monitor Data Heart Rate from ECG 94 NIBP 136/79 NIBP BP-Mean 102 Respiration from ECG 23 SpO2 99 I&O: 08/14/17 08/15/17 08/16/17 06:59 06:59 06:59 Intake Total 480 Balance 480 Result Diagrams: 08/15/17 08:39 08/15/17 08:39 Phys Exam - Physical Examination HEENT: PERRLA, moist MMs Neck: no JVD, supple Respiratory: no wheezing rales+ Cardiovascular: RRR, no significant murmur Gastrointestinal: soft, non-tender, positive bowel sounds Musculoskeletal: pulses present, edema present Neurological: non-focal, moves all 4 limbs Dx/Plan (1) Acute blood loss anemia Code(s): D62 - ACUTE POSTHEMORRHAGIC ANEMIA Status: Resolved (2) GI bleed Code(s): K92.2 - GASTROINTESTINAL HEMORRHAGE, UNSPECIFIED Status: Resolved Qualifiers: GI bleed type/associated pathology: unspecified gastrointestinal hemorrhage type Qualified Code(s): K92.2 - Gastrointestinal hemorrhage, unspecified (3) Severe muscle deconditioning Code(s): R29.898 - OTH SYMPTOMS AND SIGNS INVOLVING THE MUSCULOSKELETAL SYSTEM Status: Chronic (4) Afib Code(s): I48.91 - UNSPECIFIED ATRIAL FIBRILLATION Status: Chronic Qualifiers: Atrial fibrillation type: chronic Qualified Code(s): I48.2 - Chronic atrial fibrillation (5) Dementia Code(s): F03.90 - UNSPECIFIED DEMENTIA WITHOUT BEHAVIORAL DISTURBANCE Status: Chronic Qualifiers: Dementia type: unspecified type (6) Hypokalemia Code(s): E87.6 - HYPOKALEMIA Status: Acute - Plan aggressive potassium supplementation both iv and po -: repeat bmp at 4pm, will f/u -: d/w daughter over phone -: hold dc until potassium is corrected -: h/h stable, mild vol overload due to bld products * . Review of Systems - Medications/Allergies Allergies/Adverse Reactions: Allergies Allergy/AdvReac Type Severity Reaction Status Date / Time codeine Allergy Unverified 08/11/17 20:06 Medications: Current Medications Acetaminophen (Tylenol) 650 mg PO Q4H PRN PRN Reason: Headache/Fever or Pain Amlodipine Besylate (Norvasc) 10 mg PO DAILY [facility] Last Admin: 08/15/17 08:40 Dose: 10 mg Aripiprazole (Abilify) 5 mg PO HS [facility] Last Admin: 08/14/17 21:09 Dose: Not Given Docusate Sodium (Colace) 100 mg PO DAILY [facility] Last Admin: 08/15/17 08:40 Dose: 100 mg Ferrous Sulfate (Feosol) 325 mg PO BID-[facility] Last Admin: 08/15/17 08:40 Dose: 325 mg Guaifenesin/Dextromethorphan (Robitussin Dm) 15 ml PO Q4H PRN PRN Reason: Cough Potassium Chloride 20 meq/ (Device) 100 mls @ 50 mls/hr IVPB 1420 [facility] Stop: 08/15/17 16:19 Magnesium Oxide (Magnesium Oxide) 400 mg PO BID [facility] Metoprolol Tartrate (Lopressor) 25 mg PO BID [facility] Last Admin: 08/15/17 08:40 Dose: 25 mg Ondansetron HCl (Zofran) 4 mg IVP Q6H PRN PRN Reason: Nausea/Vomiting Polyethylene Glycol (Miralax) 17 gm PO DAILY [facility] Last Admin: 08/15/17 08:41 Dose: 17 gm Potassium Chloride (K-Dur) 40 meq PO Q6HR [facility] Stop: 08/17/17 06:01 Last Admin: 08/15/17 11:32 Dose: 40 meq Sertraline HCl (Zoloft) 100 mg PO BID [facility] Last Admin: 08/15/17 08:40 Dose: 100 mg Sodium Chloride (Flush - Normal Saline) 10 ml IVF PRN PRN PRN Reason: Saline Flush Last Admin: 08/15/17 11:32 Dose: 10 ml
[2017-08-15] MEDS ORDERED: Potassium Chloride 20 MEQ in Premix Bag 1 BAG IVPB SCH (14:20)
[2017-08-15] MEDS ORDERED: Potassium Chloride 20 MEQ/100 ML PREMIX BAG IVPB SCH (14:20)
[2017-08-15 17:07] LABS: Anion Gap 12 mmol/L (10-20); BUN (Urea Nitrogen) 12 mg/dL (9.8-20.1); Calc. Creatinine Clearance 83 mL/min (70-130); Calcium 7.7 mg/dL (7.8-10.44); Carbon Dioxide 26 mmol/L (23-31); Chloride 107 mmol/L (98-107); Estimated GFR-MDRD Greater than 90; Glucose 107 mg/dL (83-110); Sodium 142 mmol/L (136-145)
[2017-08-15] MEDS: Aripiprazole 10 MG TAB PO SCH (22:03)
[2017-08-15] MEDS: Magnesium Oxide 400 MG TAB PO SCH (22:03)
[2017-08-16] MEDS: Potassium Chloride 20 MEQ TAB PO SCH ×4 (00:41→17:20)
[2017-08-16 04:45] LABS: Anion Gap 9 mmol/L (10-20); BUN (Urea Nitrogen) 12 mg/dL (9.8-20.1); Calc. Creatinine Clearance 96 mL/min (70-130); Calcium 7.6 mg/dL (7.8-10.44); Carbon Dioxide 26 mmol/L (23-31); Chloride 109 mmol/L (98-107); Estimated GFR-MDRD Greater than 90; Glucose 97 mg/dL (83-110); Potassium 4.2 mmol/L (3.5-5.1); Sodium 140 mmol/L (136-145)
[2017-08-16] MEDS: Ferrous Sulfate 325 MG TAB PO SCH ×2 (08:52→16:31)
[2017-08-16] MEDS: Amlodipine 10 MG TAB PO SCH (08:52)
[2017-08-16] MEDS: Metoprolol Tartrate 25 MG TAB PO SCH ×2 (08:53→19:58)
[2017-08-16] MEDS: Docusate 100 MG CAP PO SCH (08:53)
[2017-08-16] MEDS: Polyethylene Glycol 3350 17 GM Packet PO SCH (08:53)
[2017-08-16] MEDS: Magnesium Oxide 400 MG TAB PO SCH ×2 (08:53→19:58)
--- NOTE | 2017-08-16 15:35 | PDOC.PN ---
- Subjective Encounter Start Date: 08/16/17 Encounter Start Time: 15:34 Ms. Alanis was seen today in follow-up of severe GI bleed. She does not have any complaints. - Objective Resuscitation Status: Resuscitation Status DNR:Do Not Resuscitate MAR Reviewed: Yes Vital Signs & Weight: Vital Signs (12 hours) Temp Pulse Resp BP BP Pulse Ox 08/16/17 08:52 90 145/84 H 08/16/17 08:00 97.6 F 85 18 08/16/17 07:33 97.6 F 85 18 145/84 H 97 Weight Admit Weight 150 lb Weight 150 lb 2.157 oz Most Recent Monitor Data Heart Rate from ECG 94 NIBP 136/79 NIBP BP-Mean 102 Respiration from ECG 23 SpO2 99 I&O: 08/15/17 08/16/17 08/17/17 06:59 06:59 06:59 Intake Total 480 920 Balance 480 920 Result Diagrams: 08/15/17 08:39 08/16/17 03:54 Phys Exam - Physical Examination HEENT: PERRLA Respiratory: no wheezing, no rales, no rhonchi, clear to auscultation bilateral Cardiovascular: RRR, no significant murmur Gastrointestinal: soft, positive bowel sounds + mild diffuse tenderness Musculoskeletal: no edema Dx/Plan (1) Afib Code(s): I48.91 - UNSPECIFIED ATRIAL FIBRILLATION Status: Chronic Qualifiers: Atrial fibrillation type: chronic Qualified Code(s): I48.2 - Chronic atrial fibrillation (2) Dementia Code(s): F03.90 - UNSPECIFIED DEMENTIA WITHOUT BEHAVIORAL DISTURBANCE Status: Chronic Qualifiers: Dementia type: unspecified type (3) Severe muscle deconditioning Code(s): R29.898 - OTH SYMPTOMS AND SIGNS INVOLVING THE MUSCULOSKELETAL SYSTEM Status: Chronic (4) Acute blood loss anemia Code(s): D62 - ACUTE POSTHEMORRHAGIC ANEMIA Status: Resolved (5) GI bleed Code(s): K92.2 - GASTROINTESTINAL HEMORRHAGE, UNSPECIFIED Status: Resolved Qualifiers: GI bleed type/associated pathology: unspecified gastrointestinal hemorrhage type Qualified Code(s): K92.2 - Gastrointestinal hemorrhage, unspecified (6) Hypokalemia Code(s): E87.6 - HYPOKALEMIA Status: Resolved - Plan * Acute Blood loss anemia- resolved. Her H&H has been stable ( I suspect the Hemoglobin value on 08/13 of 11.4, was an error). * Hypokalemia- resolved * She is now Off Pradaxa * She is stable for discharge back to the [facility] on Hospice
[2017-08-16] MEDS: Aripiprazole 10 MG TAB PO SCH (19:58)
--- NOTE | 2017-08-16 22:52 | DIS ---
DATE OF ADMISSION: 08/11/2017 DATE OF DISCHARGE: 08/16/2017 PRIMARY CARE PHYSICIAN: Surya Diaz MD DISCHARGE DISPOSITION: Back to [facility] with hospice. DISCHARGE DIAGNOSES: 1. Severe acute blood loss anemia. 2. Gastrointestinal bleed. 3. Chronic atrial fibrillation, now off Pradaxa. 4. Hypertension. 5. Obstructive sleep apnea. DISCHARGE MEDICATIONS: The patient has been taken off aspirin as well as Pradaxa. She is to continu e amlodipine 10 mg daily, Abilify 5 mg at bedtime, iron sulfate 325 mg twice daily, losartan 100 mg d ail, metoprolol 25 mg twice daily, and Zoloft 100 mg twice a day. PROCEDURES DONE DURING ADMISSION: The patient had an upper endoscopy as well as colonoscopy. The EG D was normal. The colonoscopy showed a small 2-cm shallow cratered ulcer at the anal verge and a ses sile polyp in the descending colon. CODE STATUS: DNR. ALLERGIES: CODEINE. HOSPITAL COURSE: Ms. Alanis is a pleasant 82-year-old female who was sent over to a local emergen cy room after she was found to have some signs that were thought to be consistent with a stroke. How ever, during the workup, she was found to have a hemoglobin of 3.5. She was transfused and sent to [facility] facility for further evaluation. She was seen by Gastroenterology and underwent upper and lower e ndoscopies. A 2-cm ulcer was found at the anal verge. It was possible that this could be the source of the bleeding. She was transfused another 2 units in our facility and her hemoglobin at the time of discharge was 9.5. She had had a previous GI bleed before on Pradaxa and therefore, at this time she will be taken off this indefinitely. She will be transferred back to the halfway at [facility] on home hospice and it is expected that this should be done today.
[2017-08-17] MEDS: Potassium Chloride 20 MEQ TAB PO SCH ×2 (00:59→04:39)
[2017-08-17] MEDS: Magnesium Oxide 400 MG TAB PO SCH ×2 (08:33→20:34)
[2017-08-17] MEDS: Ferrous Sulfate 325 MG TAB PO SCH ×2 (08:33→16:19)
[2017-08-17] MEDS: Docusate 100 MG CAP PO SCH (08:33)
[2017-08-17] MEDS: Amlodipine 10 MG TAB PO SCH (08:33)
[2017-08-17] MEDS: Metoprolol Tartrate 25 MG TAB PO SCH ×2 (08:34→20:34)
[2017-08-17] MEDS: Polyethylene Glycol 3350 17 GM Packet PO SCH (08:34)
[2017-08-17 09:35] LABS: Hemoglobin 9.8 g/dL (12.0-16.0); Platelet Count 145 thou/uL (130-400)
--- NOTE | 2017-08-17 14:37 | PDOC.PN ---
- Subjective Encounter Start Date: 08/17/17 Encounter Start Time: 14:35 Ms. Alanis was seen in follow-up of severe acute blood loss anemia. she is feeling better, and does not have any complaints. - Objective Resuscitation Status: Resuscitation Status DNR:Do Not Resuscitate MAR Reviewed: Yes Vital Signs & Weight: Vital Signs (12 hours) Temp Pulse Resp BP Pulse Ox 08/17/17 08:33 96 08/17/17 08:00 97.5 F L 89 22 H 150/87 H 97 Weight Admit Weight 150 lb Weight 150 lb 2.157 oz Most Recent Monitor Data Heart Rate from ECG 94 NIBP 136/79 NIBP BP-Mean 102 Respiration from ECG 23 SpO2 99 I&O: 08/16/17 08/17/17 08/18/17 06:59 06:59 06:59 Intake Total 920 300 Balance 920 300 Result Diagrams: 08/17/17 09:15 08/16/17 03:54 Phys Exam - Physical Examination HEENT: PERRLA Respiratory: no wheezing, no rales, no rhonchi, clear to auscultation bilateral Cardiovascular: RRR, no significant murmur, no rub Gastrointestinal: soft, non-tender, positive bowel sounds Musculoskeletal: no edema Dx/Plan (1) Afib Code(s): I48.91 - UNSPECIFIED ATRIAL FIBRILLATION Status: Chronic Qualifiers: Atrial fibrillation type: chronic Qualified Code(s): I48.2 - Chronic atrial fibrillation (2) Dementia Code(s): F03.90 - UNSPECIFIED DEMENTIA WITHOUT BEHAVIORAL DISTURBANCE Status: Chronic Qualifiers: Dementia type: unspecified type (3) Severe muscle deconditioning Code(s): R29.898 - OTH SYMPTOMS AND SIGNS INVOLVING THE MUSCULOSKELETAL SYSTEM Status: Chronic (4) Acute blood loss anemia Code(s): D62 - ACUTE POSTHEMORRHAGIC ANEMIA Status: Resolved (5) GI bleed Code(s): K92.2 - GASTROINTESTINAL HEMORRHAGE, UNSPECIFIED Status: Resolved Qualifiers: GI bleed type/associated pathology: unspecified gastrointestinal hemorrhage type Qualified Code(s): K92.2 - Gastrointestinal hemorrhage, unspecified (6) Hypokalemia Code(s): E87.6 - HYPOKALEMIA Status: Resolved - Plan * Acute blood loss anemia- her H&H has again remained stable- HGB is 9.8 today * She is off Pradaxa, and anticoagulation for life * AFIB- her heart rate is stable. * Dementia- stable * Plan to return back to [facility] with [facility]osp[facility] tomorrow
[2017-08-17] MEDS: Aripiprazole 10 MG TAB PO SCH (20:34)
[2017-08-18] MEDS: Amlodipine 10 MG TAB PO SCH (09:15)
[2017-08-18] MEDS: Ferrous Sulfate 325 MG TAB PO SCH ×2 (09:15→16:51)
[2017-08-18] MEDS: Metoprolol Tartrate 25 MG TAB PO SCH (09:15)
[2017-08-18] MEDS: Magnesium Oxide 400 MG TAB PO SCH (09:15)
[2017-08-18] MEDS: Polyethylene Glycol 3350 17 GM Packet PO SCH (09:16)
[2017-08-18] MEDS: Docusate 100 MG CAP PO SCH (09:16)
--- NOTE | 2017-08-18 10:13 | PDOC.PN ---
- Subjective Encounter Start Date: 08/18/17 Encounter Start Time: 10:10 Ms. Alanis was seen today in follow-up. She says she feels short of breath. - Objective Resuscitation Status: Resuscitation Status DNR:Do Not Resuscitate MAR Reviewed: Yes Vital Signs & Weight: Vital Signs (12 hours) Temp Pulse Resp BP BP Pulse Ox 08/18/17 09:15 90 161/94 H 08/18/17 08:00 97.5 F L 89 24 H 161/94 H 100 Weight Admit Weight 150 lb Weight 150 lb 2.157 oz Most Recent Monitor Data Heart Rate from ECG 94 NIBP 136/79 NIBP BP-Mean 102 Respiration from ECG 23 SpO2 99 I&O: 08/17/17 08/18/17 08/19/17 06:59 06:59 06:59 Intake Total 300 Balance 300 Result Diagrams: 08/17/17 09:15 08/16/17 03:54 Phys Exam - Physical Examination HEENT: PERRLA + rhonchi bilaterally, no rales Cardiovascular: RRR, no significant murmur Gastrointestinal: soft, non-tender, positive bowel sounds Musculoskeletal: no edema Dx/Plan (1) Afib Code(s): I48.91 - UNSPECIFIED ATRIAL FIBRILLATION Status: Chronic Qualifiers: Atrial fibrillation type: chronic Qualified Code(s): I48.2 - Chronic atrial fibrillation (2) Dementia Code(s): F03.90 - UNSPECIFIED DEMENTIA WITHOUT BEHAVIORAL DISTURBANCE Status: Chronic Qualifiers: Dementia type: unspecified type (3) Severe muscle deconditioning Code(s): R29.898 - OTH SYMPTOMS AND SIGNS INVOLVING THE MUSCULOSKELETAL SYSTEM Status: Chronic (4) Acute blood loss anemia Code(s): D62 - ACUTE POSTHEMORRHAGIC ANEMIA Status: Resolved (5) GI bleed Code(s): K92.2 - GASTROINTESTINAL HEMORRHAGE, UNSPECIFIED Status: Resolved Qualifiers: GI bleed type/associated pathology: unspecified gastrointestinal hemorrhage type Qualified Code(s): K92.2 - Gastrointestinal hemorrhage, unspecified (6) Hypokalemia Code(s): E87.6 - HYPOKALEMIA Status: Resolved - Plan * Acute repsiratory failure- suspect volume overload from the recent transfusions- will give a dose of Lasix, and a Neb treatment * Acute Blood loss anemia- her H&H has been stable * AFIB- heart rate is stable * HTN- blood pressure is slightly elevated- Lasix may help * Transfer to [place] later this afternoon if respiratory status improved..
[2017-08-18] MEDS ORDERED: Furosemide 40 MG/4 ML VIAL SLOW IVP SCH ×2 (11:00→12:30)
[2017-08-18] MEDS ORDERED: Morphine 4 MG/ML VIAL SLOW IVP PRN ×2 (12:27)
[2017-08-18 19:45] VITALS: TEMP 98
[2017-08-18 19:47] VITALS: BP 95/65
== END 2017-08-18 18:51 | DRG 393 ==
LOC: ERS 19:10 → CCU 20:03 → T4-A 08-12 22:08
PROVIDERS: ADMIT Internal Medicine; ATTEND Internal Medicine
PROC: 30233N1 Transfusion of Nonautologous Red Blood Cells into Peripheral Vein, Percutaneous Approach (ICD-10-PCS; 2017-08-12)
PROC: 30233K1 Transfusion of Nonautologous Frozen Plasma into Peripheral Vein, Percutaneous Approach (ICD-10-PCS; 2017-08-12)
PROC: 0DJ08ZZ Inspection of Upper Intestinal Tract, Via Natural or Artificial Opening Endoscopic (ICD-10-PCS; principal; 2017-08-14)
PROC: 0DJD8ZZ Inspection of Lower Intestinal Tract, Via Natural or Artificial Opening Endoscopic (ICD-10-PCS; 2017-08-14)
DX: K62.6 Ulcer of anus and rectum (principal); J96.00 Acute respiratory failure, unspecified whether with hypoxia or hypercapnia; E44.0 Moderate protein-calorie malnutrition; I48.2 Chronic atrial fibrillation; I50.9 Heart failure, unspecified; D62 Acute posthemorrhagic anemia; E03.9 Hypothyroidism, unspecified; E87.6 Hypokalemia; J44.9 Chronic obstructive pulmonary disease, unspecified; I73.9 Peripheral vascular disease, unspecified; G47.33 Obstructive sleep apnea (adult) (pediatric); K57.90 Diverticulosis of intestine, part unspecified, without perforation or abscess without bleeding; K63.5 Polyp of colon; K64.4 Residual hemorrhoidal skin tags; K21.9 Gastro-esophageal reflux disease without esophagitis; Z79.01 Long term (current) use of anticoagulants; Z66 Do not resuscitate; F03.90 Unspecified dementia, unspecified severity, without behavioral disturbance, psychotic disturbance, mood disturbance, and anxiety; R29.898 Other symptoms and signs involving the musculoskeletal system; Z85.820 Personal history of malignant melanoma of skin
CPT/HCPCS: 36415; 36430; 74018; 80048; 80053; 85014; 85018; 85025; 85049; 85610; 85730; 86850; 86900; 86901; 94640; 94760; 96365; 96376; A4216; C9113; C9399; G8996-GN-CJ; G8997-GN-CJ; J1940; J2270; J2704; J3480; J7050; J7620; P9016; P9059